=== PATIENT | male | born 1940 | race Caucasian/White ===

== ENCOUNTER 2018-09-03 10:19 | Inpatient (IN) | payer MEDICARE ==
[~2018-09-03] VITALS: Ht 182.9 cm; Wt 90.6 kg
[~2018-09-03 10:19] MED LIST: AMLO10 PO; ASCO500 PO; ASPI81CH PO; CENTRUM SILVER1 EAC1 PO; CHOL10002 PO; CIPR500 PO; Colace100 MG PO; DEXA4 IV; FERR325 PO; Garlic1000 MG PO; HYDACE10B PO; HYOS0.375T; LOSHYD100 PO; MAGIC MOUTHWASH PO; METR500 PO; MULTIVITAMIN PO; Metamucil Smooth1 EA PO; Norco 10-325 T1 EACH PO; OMEGA 3 1200MG PO; ONDA8 PO; OXYC5 PO; Omeprazole20 M1 PO; PANT40 PO; Promacta25 MG PO; TOCO400 PO; WARF4 PO; [UNRECOGNIZED DRUG - OTHER] PO
[2018-09-03 15:42] LABS: Hematocrit 24.9 % (37.0-53.0); Hemoglobin 7.6 g/dL (13.5-17.5)
[2018-09-03 23:53] LABS: BASOPHILS ABSOLUTE AUTO 0.03 K/mm3 (0.00-0.23); BASOPHILS PERCENT AUTO 1 % (0-2); EOSINOPHILS ABSOLUTE AUTO 0.13 K/mm3 (0.00-0.68); EOSINOPHILS PERCENT AUTO 3 % (0-6); Hematocrit 27.7 % (37.0-53.0); Hemoglobin 8.8 g/dL (13.5-17.5); IMMATURE GRAN ABSOLUTE AUTO 0.01 K/mm3 (0.00-0.10); IMMATURE GRAN PERCENT AUTO 0 % (0-1); LYMPHOCYTES ABSOLUTE AUTO 0.79 K/mm3 (0.84-5.20); LYMPHOCYTES PERCENT AUTO 18 % (21-46); MONOCYTES ABSOLUTE AUTO 0.32 K/mm3 (0.16-1.47); MONOCYTES PERCENT AUTO 7 % (4-13); Mean Corpuscular HGB 30.2 pg (26.0-34.0); Mean Corpuscular HGB Conc 31.8 g/dL (31.5-36.5); NEUTROPHILS ABSOLUTE AUTO 3.19 K/mm3 (1.96-9.15); NEUTROPHILS PERCENT AUTO 71 % (41-73); RDW Coefficient Variation 15.2 % (11.7-14.2); RDW Standard Deviation 52.4 fL (35.1-46.3); Red Blood Cell Count 2.91 M/mm3 (4.30-5.90); White Blood Cell Count 4.47 K/mm3 (4.00-11.30)
[2018-09-03 23:54] LABS: Mean Corpuscular Volume 95 fL (80-100)
[2018-09-03 23:55] LABS: Platelet Count 18 K/mm3 (150-400)
[2018-09-04 03:17] LABS: BASOPHILS ABSOLUTE AUTO 0.02 K/mm3 (0.00-0.23); BASOPHILS PERCENT AUTO 1 % (0-2); EOSINOPHILS ABSOLUTE AUTO 0.18 K/mm3 (0.00-0.68); EOSINOPHILS PERCENT AUTO 5 % (0-6); Hematocrit 28.4 % (37.0-53.0); Hemoglobin 8.8 g/dL (13.5-17.5); IMMATURE GRAN PERCENT AUTO 0 % (0-1); LYMPHOCYTES PERCENT AUTO 20 % (21-46); MONOCYTES ABSOLUTE AUTO 0.37 K/mm3 (0.16-1.47); MONOCYTES PERCENT AUTO 9 % (4-13); Mean Corpuscular HGB 29.6 pg (26.0-34.0); Mean Corpuscular Volume 96 fL (80-100); NEUTROPHILS ABSOLUTE AUTO 2.63 K/mm3 (1.96-9.15); NEUTROPHILS PERCENT AUTO 66 % (41-73); RDW Coefficient Variation 15.4 % (11.7-14.2); RDW Standard Deviation 53.9 fL (35.1-46.3); Red Blood Cell Count 2.97 M/mm3 (4.30-5.90)
[2018-09-04 03:19] LABS: Mean Platelet Volume 14.1 fL (9.1-12.4); Platelet Count 18 K/mm3 (150-400)
[2018-09-04 03:33] LABS: Alanine Aminotransfer (ALT/SGP 18 U/L (12-78); Albumin/Globulin Ratio 0.9 (0.8-1.8); Alk Phos 83 U/L (50-136); Anion Gap 6 mmol/L (6-16); Aspartate Aminotrans (AST/SGOT 17 U/L (12-37); Bilirubin, Total 0.8 mg/dL (0.1-1.0); Blood Urea Nitrogen 14 mg/dL (8-24); Bun/Creatinine Ratio 16.1 (12.0-20.0); CO2, Blood 25 mmol/L (21-32); Calcium, Blood 7.4 mg/dL (8.5-10.1); Chloride, Blood 114 mmol/L (98-108); Creatinine, Blood 0.87 mg/dL (0.60-1.20); Globulin, Blood 3.3 g/dL (2.2-4.0); Glomerular Filtration Rate >60 (60-); Glucose, Blood 103 mg/dL (70-99); Potassium, Blood 4.4 mmol/L (3.5-5.5); Sodium, Blood 145 mmol/L (136-145); Total Protein, Blood 6.3 g/dL (6.4-8.2)
[2018-09-04 08:05] LABS: Hematocrit 28.6 % (37.0-53.0); Hemoglobin 8.9 g/dL (13.5-17.5)
[2018-09-04 09:23] LABS: Hematocrit 29.1 % (37.0-53.0); Hemoglobin 9.1 g/dL (13.5-17.5)
[2018-09-04 17:49] LABS: Hematocrit 30.7 % (37.0-53.0); Hemoglobin 9.6 g/dL (13.5-17.5)
[2018-09-04 21:38] LABS: Hematocrit 28.7 % (37.0-53.0); Hemoglobin 9.2 g/dL (13.5-17.5)
[2018-09-05 01:13] LABS: BASOPHILS ABSOLUTE AUTO 0.02 K/mm3 (0.00-0.23); BASOPHILS PERCENT AUTO 1 % (0-2); EOSINOPHILS ABSOLUTE AUTO 0.17 K/mm3 (0.00-0.68); EOSINOPHILS PERCENT AUTO 5 % (0-6); IMMATURE GRAN ABSOLUTE AUTO 0.01 K/mm3 (0.00-0.10); IMMATURE GRAN PERCENT AUTO 0 % (0-1); LYMPHOCYTES ABSOLUTE AUTO 0.69 K/mm3 (0.84-5.20); LYMPHOCYTES PERCENT AUTO 21 % (21-46); MONOCYTES ABSOLUTE AUTO 0.39 K/mm3 (0.16-1.47); MONOCYTES PERCENT AUTO 12 % (4-13); Mean Corpuscular HGB 30.6 pg (26.0-34.0); Mean Corpuscular HGB Conc 32.1 g/dL (31.5-36.5); Mean Corpuscular Volume 95 fL (80-100); NEUTROPHILS ABSOLUTE AUTO 2.03 K/mm3 (1.96-9.15); NEUTROPHILS PERCENT AUTO 61 % (41-73); RDW Standard Deviation 52.1 fL (35.1-46.3); Red Blood Cell Count 2.94 M/mm3 (4.30-5.90); White Blood Cell Count 3.31 K/mm3 (4.00-11.30)
[2018-09-05 01:18] LABS: Platelet Count 18 K/mm3 (150-400)
[2018-09-05 01:31] LABS: Alanine Aminotransfer (ALT/SGP 20 U/L (12-78); Albumin, Blood 3.1 g/dL (3.4-5.0); Albumin/Globulin Ratio 0.9 (0.8-1.8); Alk Phos 82 U/L (50-136); Anion Gap 9 mmol/L (6-16); Aspartate Aminotrans (AST/SGOT 16 U/L (12-37); Bilirubin, Total 0.8 mg/dL (0.1-1.0); Blood Urea Nitrogen 9 mg/dL (8-24); Bun/Creatinine Ratio 11.6 (12.0-20.0); CO2, Blood 24 mmol/L (21-32); Calcium, Blood 7.6 mg/dL (8.5-10.1); Chloride, Blood 111 mmol/L (98-108); Creatinine, Blood 0.78 mg/dL (0.60-1.20); Globulin, Blood 3.3 g/dL (2.2-4.0); Glomerular Filtration Rate >60 (60-); Glucose, Blood 102 mg/dL (70-99); Potassium, Blood 4.1 mmol/L (3.5-5.5); Sodium, Blood 144 mmol/L (136-145); Total Protein, Blood 6.4 g/dL (6.4-8.2)
[2018-09-06 04:14] LABS: BASOPHILS ABSOLUTE AUTO 0.02 K/mm3 (0.00-0.23); BASOPHILS PERCENT AUTO 1 % (0-2); EOSINOPHILS ABSOLUTE AUTO 0.18 K/mm3 (0.00-0.68); EOSINOPHILS PERCENT AUTO 6 % (0-6); Hematocrit 26.8 % (37.0-53.0); Hemoglobin 8.3 g/dL (13.5-17.5); IMMATURE GRAN PERCENT AUTO 0 % (0-1); LYMPHOCYTES ABSOLUTE AUTO 0.61 K/mm3 (0.84-5.20); LYMPHOCYTES PERCENT AUTO 19 % (21-46); MONOCYTES ABSOLUTE AUTO 0.46 K/mm3 (0.16-1.47); MONOCYTES PERCENT AUTO 15 % (4-13); Mean Corpuscular HGB 29.7 pg (26.0-34.0); Mean Corpuscular Volume 96 fL (80-100); NEUTROPHILS ABSOLUTE AUTO 1.89 K/mm3 (1.96-9.15); NEUTROPHILS PERCENT AUTO 60 % (41-73); RDW Coefficient Variation 14.7 % (11.7-14.2); RDW Standard Deviation 52.2 fL (35.1-46.3); Red Blood Cell Count 2.79 M/mm3 (4.30-5.90); White Blood Cell Count 3.16 K/mm3 (4.00-11.30)
[2018-09-06 04:18] LABS: Mean Platelet Volume 14.2 fL (9.1-12.4)
[2018-09-06 04:21] LABS: Platelet Count 29 K/mm3 (150-400)
[2018-09-06 04:46] LABS: Anion Gap 6 mmol/L (6-16); Blood Urea Nitrogen 9 mg/dL (8-24); Bun/Creatinine Ratio 10.6 (12.0-20.0); CO2, Blood 24 mmol/L (21-32); Calcium, Blood 7.6 mg/dL (8.5-10.1); Chloride, Blood 111 mmol/L (98-108); Creatinine, Blood 0.85 mg/dL (0.60-1.20); Glomerular Filtration Rate >60 (60-); Glucose, Blood 98 mg/dL (70-99); Magnesium, Blood 2.2 mg/dL (1.6-2.4); Potassium, Blood 3.8 mmol/L (3.5-5.5); Sodium, Blood 141 mmol/L (136-145)
[2018-09-06 04:54] LABS: Phosphorus, Blood 3.2 mg/dL (2.5-4.9)
[2018-09-06 14:09] LABS: Hematocrit 27.6 % (37.0-53.0); Hemoglobin 8.6 g/dL (13.5-17.5)
[2018-09-06 18:11] LABS: BASOPHILS ABSOLUTE AUTO 0.03 K/mm3 (0.00-0.23); BASOPHILS PERCENT AUTO 1 % (0-2); EOSINOPHILS ABSOLUTE AUTO 0.18 K/mm3 (0.00-0.68); EOSINOPHILS PERCENT AUTO 6 % (0-6); Hemoglobin 9.3 g/dL (13.5-17.5); IMMATURE GRAN PERCENT AUTO 0 % (0-1); LYMPHOCYTES ABSOLUTE AUTO 0.71 K/mm3 (0.84-5.20); LYMPHOCYTES PERCENT AUTO 22 % (21-46); MONOCYTES ABSOLUTE AUTO 0.32 K/mm3 (0.16-1.47); MONOCYTES PERCENT AUTO 10 % (4-13); Mean Corpuscular HGB 29.8 pg (26.0-34.0); Mean Corpuscular Volume 96 fL (80-100); NEUTROPHILS PERCENT AUTO 62 % (41-73); RDW Coefficient Variation 14.8 % (11.7-14.2); RDW Standard Deviation 52.5 fL (35.1-46.3); Red Blood Cell Count 3.12 M/mm3 (4.30-5.90); White Blood Cell Count 3.24 K/mm3 (4.00-11.30)
[2018-09-06 18:17] LABS: Platelet Count 36 K/mm3 (150-400)
[2018-09-07 03:46] LABS: BASOPHILS ABSOLUTE AUTO 0.03 K/mm3 (0.00-0.23); BASOPHILS PERCENT AUTO 1 % (0-2); EOSINOPHILS ABSOLUTE AUTO 0.18 K/mm3 (0.00-0.68); EOSINOPHILS PERCENT AUTO 6 % (0-6); Hematocrit 27.1 % (37.0-53.0); Hemoglobin 8.4 g/dL (13.5-17.5); IMMATURE GRAN PERCENT AUTO 0 % (0-1); LYMPHOCYTES ABSOLUTE AUTO 0.74 K/mm3 (0.84-5.20); LYMPHOCYTES PERCENT AUTO 24 % (21-46); MONOCYTES PERCENT AUTO 13 % (4-13); Mean Corpuscular HGB 29.1 pg (26.0-34.0); Mean Corpuscular Volume 94 fL (80-100); NEUTROPHILS ABSOLUTE AUTO 1.72 K/mm3 (1.96-9.15); NEUTROPHILS PERCENT AUTO 56 % (41-73); RDW Coefficient Variation 14.8 % (11.7-14.2); RDW Standard Deviation 50.3 fL (35.1-46.3); Red Blood Cell Count 2.89 M/mm3 (4.30-5.90); White Blood Cell Count 3.07 K/mm3 (4.00-11.30)
[2018-09-07 04:10] LABS: Mean Platelet Volume 14.1 fL (9.1-12.4)
[2018-09-07 04:11] LABS: Platelet Count 41 K/mm3 (150-400)
[2018-09-07 04:24] LABS: Alanine Aminotransfer (ALT/SGP 16 U/L (12-78); Albumin/Globulin Ratio 0.7 (0.8-1.8); Alk Phos 78 U/L (50-136); Anion Gap 5 mmol/L (6-16); Aspartate Aminotrans (AST/SGOT 18 U/L (12-37); Bilirubin, Total 0.7 mg/dL (0.1-1.0); Blood Urea Nitrogen 11 mg/dL (8-24); CO2, Blood 25 mmol/L (21-32); Calcium, Blood 7.9 mg/dL (8.5-10.1); Chloride, Blood 111 mmol/L (98-108); Globulin, Blood 4.3 g/dL (2.2-4.0); Glomerular Filtration Rate >60 (60-); Glucose, Blood 80 mg/dL (70-99); Potassium, Blood 3.9 mmol/L (3.5-5.5); Sodium, Blood 141 mmol/L (136-145); Total Protein, Blood 7.3 g/dL (6.4-8.2)
[2018-09-07 12:30] LABS: Hematocrit 28.1 % (37.0-53.0); Hemoglobin 8.6 g/dL (13.5-17.5)
[2018-09-08 03:29] LABS: BASOPHILS ABSOLUTE AUTO 0.02 K/mm3 (0.00-0.23); BASOPHILS PERCENT AUTO 1 % (0-2); EOSINOPHILS ABSOLUTE AUTO 0.16 K/mm3 (0.00-0.68); EOSINOPHILS PERCENT AUTO 4 % (0-6); Hematocrit 26.6 % (37.0-53.0); Hemoglobin 8.4 g/dL (13.5-17.5); IMMATURE GRAN ABSOLUTE AUTO 0.01 K/mm3 (0.00-0.10); IMMATURE GRAN PERCENT AUTO 0 % (0-1); LYMPHOCYTES ABSOLUTE AUTO 0.75 K/mm3 (0.84-5.20); LYMPHOCYTES PERCENT AUTO 17 % (21-46); MONOCYTES ABSOLUTE AUTO 0.52 K/mm3 (0.16-1.47); MONOCYTES PERCENT AUTO 12 % (4-13); Mean Corpuscular HGB 29.9 pg (26.0-34.0); Mean Corpuscular HGB Conc 31.6 g/dL (31.5-36.5); Mean Corpuscular Volume 95 fL (80-100); NEUTROPHILS ABSOLUTE AUTO 2.85 K/mm3 (1.96-9.15); NEUTROPHILS PERCENT AUTO 66 % (41-73); RDW Coefficient Variation 14.6 % (11.7-14.2); RDW Standard Deviation 50.4 fL (35.1-46.3); Red Blood Cell Count 2.81 M/mm3 (4.30-5.90); White Blood Cell Count 4.31 K/mm3 (4.00-11.30)
[2018-09-08 03:34] LABS: Platelet Count 32 K/mm3 (150-400)
== END 2018-09-08 11:24 | disposition home or self-care (01) | DRG 375 ==
LOC: ER 10:19 → MEDS 13:54 → ICUE 13:54 → MEDS 14:50 → ICUE 20:04
PROVIDERS: Family Medicine; Internal Medicine; Internal Medicine Gastroenterology; Nurse Practitioner Acute Care; Student in an Organized Health Care Education/Training Program
PROC: 3E0G8GC Introduction of Other Therapeutic Substance into Upper GI, Via Natural or Artificial Opening Endoscopic (ICD-10-PCS; principal; 2018-09-03 18:00)
PROC: 0W3P8ZZ Control Bleeding in Gastrointestinal Tract, Via Natural or Artificial Opening Endoscopic (ICD-10-PCS; 2018-09-03 18:00)
PROC: 30233N1 Transfusion of Nonautologous Red Blood Cells into Peripheral Vein, Percutaneous Approach (ICD-10-PCS; 2018-09-04)
DX: C78.89 Secondary malignant neoplasm of other digestive organs (principal); K92.2 Gastrointestinal hemorrhage, unspecified; D69.6 Thrombocytopenia, unspecified; I10 Essential (primary) hypertension; Z87.891 Personal history of nicotine dependence; E78.5 Hyperlipidemia, unspecified; H90.5 Unspecified sensorineural hearing loss; D64.9 Anemia, unspecified; G47.00 Insomnia, unspecified
CPT/HCPCS: 36415; 36430; 80048; 80053; 83735; 84100; 85014; 85018; 85025; 86850; 86900; 86901; 86923; 87493; 96365; 96366; 99285-25; C9113; J1568; J7042; J7050; P9016; Q0163

== ENCOUNTER → 2019-07-14 | Outpatient (CLI) | payer MEDICARE ==
[~2019-07-14] MED LIST changes: +CEPH500 PO
[2019-07-14 12:10] LABS: BASOPHILS ABSOLUTE AUTO 0.03 K/mm3 (0.00-0.23); BASOPHILS PERCENT AUTO 1 % (0-2); EOSINOPHILS ABSOLUTE AUTO 0.14 K/mm3 (0.00-0.68); EOSINOPHILS PERCENT AUTO 4 % (0-6); Hematocrit 41.9 % (37.0-53.0); Hemoglobin 13.9 g/dL (13.5-17.5); IMMATURE GRAN ABSOLUTE AUTO 0.01 K/mm3 (0.00-0.10); IMMATURE GRAN PERCENT AUTO 0 % (0-1); LYMPHOCYTES ABSOLUTE AUTO 0.85 K/mm3 (0.84-5.20); LYMPHOCYTES PERCENT AUTO 21 % (21-46); MONOCYTES ABSOLUTE AUTO 0.46 K/mm3 (0.16-1.47); MONOCYTES PERCENT AUTO 11 % (4-13); Mean Corpuscular HGB Conc 33.2 g/dL (31.5-36.5); Mean Corpuscular Volume 97 fL (80-100); NEUTROPHILS ABSOLUTE AUTO 2.55 K/mm3 (1.96-9.15); NEUTROPHILS PERCENT AUTO 63 % (41-73); RDW Coefficient Variation 12.5 % (11.7-14.2); RDW Standard Deviation 44.6 fL (35.1-46.3); Red Blood Cell Count 4.34 M/mm3 (4.30-5.90); White Blood Cell Count 4.04 K/mm3 (4.00-11.30)
[2019-07-14 12:28] LABS: Alanine Aminotransfer (ALT/SGP 29 U/L (12-78); Albumin, Blood 4.1 g/dL (3.4-5.0); Albumin/Globulin Ratio 0.9 (0.8-1.8); Alk Phos 155 U/L (40-126); Anion Gap 9 mmol/L (6-16); Aspartate Aminotrans (AST/SGOT 26 U/L (12-37); Bilirubin, Total 0.5 mg/dL (0.1-1.0); Blood Urea Nitrogen 16 mg/dL (8-24); Bun/Creatinine Ratio 14.8 (12.0-20.0); CO2, Blood 28 mmol/L (21-32); Calcium, Blood 8.9 mg/dL (8.5-10.1); Chloride, Blood 104 mmol/L (98-108); Creatinine, Blood 1.08 mg/dL (0.60-1.20); Globulin, Blood 4.4 g/dL (2.2-4.0); Glomerular Filtration Rate >60 (60-); Glucose, Blood 89 mg/dL (70-99); Potassium, Blood 4.3 mmol/L (3.5-5.5); Sodium, Blood 141 mmol/L (136-145); Thyroid Stimulating Hormone 1.488 uIU/mL (0.360-4.800); Total Protein, Blood 8.5 g/dL (6.4-8.2)
[2019-07-14 13:06] LABS: Mean Platelet Volume 10.9 fL (9.1-12.4)
[2019-07-14 13:07] LABS: Platelet Count 40 K/mm3 (150-400)
== END | disposition home or self-care (01) ==
LOC: LAB SHORT 12:05 → LAB EV 12:05
PROVIDERS: Physician Assistant
DX: R53.83 Other fatigue (principal); E86.0 Dehydration
CPT/HCPCS: 80053; 84443; 85025

== ENCOUNTER 2019-07-18 11:54 | Emergency (ER) | payer MEDICARE ==
[~2019-07-18] VITALS: Ht 182.9 cm; Wt 104.3 kg
[~2019-07-18 11:54] MED LIST changes: -CEPH500 PO
[2019-07-18] MEDS ORDERED: CEPH500 PO (14:43)
== END 2019-07-18 15:32 | disposition home or self-care (01) ==
LOC: ER 11:54
DX: S61.011A Laceration without foreign body of right thumb without damage to nail, initial encounter (principal); I10 Essential (primary) hypertension; Z85.01 Personal history of malignant neoplasm of esophagus; Z87.891 Personal history of nicotine dependence; Z79.899 Other long term (current) drug therapy; W22.8XXA Striking against or struck by other objects, initial encounter; Y92.813 Airplane as the place of occurrence of the external cause
CPT/HCPCS: 90471; 90714; 99283-25; A9270-GY

== ENCOUNTER → 2019-09-10 | Outpatient (CLI) | payer MEDICARE ==
[~2019-09-10] MED LIST changes: +CEPH500 PO
== END | disposition home or self-care (01) ==
LOC: LAB SHORT 15:40 → LAB EV 15:40
DX: L03.012 Cellulitis of left finger (principal)
CPT/HCPCS: 87070; 87075; 87077; 87147; 87186; 87205

== ENCOUNTER 2019-09-24 09:00 | Inpatient (IN) | payer MEDICARE ==
[~2019-09-24] VITALS: Ht 182.9 cm; Wt 98.8 kg
[~2019-09-24 09:00] MED LIST changes: -CENTRUM SILVER1 EAC1 PO; +DEXA4 PO; +THERA1 EACH PO
[2019-09-24 09:20] LABS: Calcium, Ionized (POC) 1.03 mmol/L (1.10-1.46); Chloride (POC) 98 mmol/L (98-108); Glucose (ISTAT POC) 131 mg/dL (70-99); Hemoglobin (POC) 12.6 g/dL (13.5-17.5); Potassium (POC) 4.2 mmol/L (3.5-5.5); Sodium (POC) 135 mmol/L (135-148); Total CO2 (POC) 26 mmol/L (21-32)
[2019-09-24 09:24] LABS: BASOPHILS ABSOLUTE AUTO 0.01 K/mm3 (0.00-0.23); BASOPHILS PERCENT AUTO 0 % (0-2); EOSINOPHILS ABSOLUTE AUTO 0.01 K/mm3 (0.00-0.68); EOSINOPHILS PERCENT AUTO 0 % (0-6); Hematocrit 36.2 % (37.0-53.0); Hemoglobin 11.8 g/dL (13.5-17.5); IMMATURE GRAN ABSOLUTE AUTO 0.09 K/mm3 (0.00-0.10); IMMATURE GRAN PERCENT AUTO 2 % (0-1); LYMPHOCYTES ABSOLUTE AUTO 0.93 K/mm3 (0.84-5.20); LYMPHOCYTES PERCENT AUTO 16 % (21-46); MONOCYTES ABSOLUTE AUTO 0.15 K/mm3 (0.16-1.47); MONOCYTES PERCENT AUTO 3 % (4-13); Mean Corpuscular HGB 32.2 pg (26.0-34.0); Mean Corpuscular HGB Conc 32.6 g/dL (31.5-36.5); Mean Corpuscular Volume 99 fL (80-100); Mean Platelet Volume 11.5 fL (9.1-12.4); NEUTROPHILS ABSOLUTE AUTO 4.52 K/mm3 (1.96-9.15); NEUTROPHILS PERCENT AUTO 79 % (41-73); NRBC ABSOLUTE 0.24 K/mm3 (0.00-0.02); NRBC Auto 4.2 /100 WBC (0.0-0.2); Platelet Count 80 K/mm3 (150-400); RDW Coefficient Variation 14.8 % (11.7-14.2); Red Blood Cell Count 3.67 M/mm3 (4.30-5.90); White Blood Cell Count 5.71 K/mm3 (4.00-11.30)
[2019-09-24 09:44] LABS: PCO2 Venous 39.2 mmHg (38-42); PO2 Venous 85.8 mmHg (38-42); pH Blood Venous 7.46 (7.34-7.37)
[2019-09-24 09:45] LABS: Alanine Aminotransfer (ALT/SGP 32 U/L (12-78); Albumin, Blood 2.3 g/dL (3.4-5.0); Albumin/Globulin Ratio 0.5 (0.8-1.8); Alk Phos 96 U/L (50-136); Anion Gap 8 mmol/L (6-16); Aspartate Aminotrans (AST/SGOT 31 U/L (12-37); Bilirubin, Total 1.1 mg/dL (0.1-1.0); Blood Urea Nitrogen 20 mg/dL (8-24); Bun/Creatinine Ratio 18.3 (12.0-20.0); CO2, Blood 28 mmol/L (21-32); Calcium, Blood 8.3 mg/dL (8.5-10.1); Chloride, Blood 101 mmol/L (98-108); Creatinine, Blood 1.09 mg/dL (0.60-1.20); Globulin, Blood 4.3 g/dL (2.2-4.0); Glomerular Filtration Rate >60 (60-); Glucose, Blood 125 mg/dL (70-99); Potassium, Blood 4.2 mmol/L (3.5-5.5); Sodium, Blood 137 mmol/L (136-145); Total Protein, Blood 6.6 g/dL (6.4-8.2); Troponin I 0.019 ng/mL (0.000-0.040)
[2019-09-24 09:45] LABS: Base Excess Venous 4.3 mmol/L
[2019-09-24 11:44] LABS: Source, Urine Clean Catch
--- NOTE | 2019-09-24 11:52 | NUR ---
ED Palliative Care Consult. Spoke with Dr Catherine and discussed case. Pt may benefit from conversation regarding POLST and Code Status. Pt is A&O and denies pain at this time. Pt reports moderate dyspnea and is currently on 10 L O2 via oxymizer. Pt does not use oxygen at home. Pt reports breathing treatment is helping with dyspnea. Pt reports mild but manageable nausea. Pt's Darlin is present during visit. Therapeutic discussion occured regarding goals of care. Pt lives at home with his . Children live in [place]. Pt and report adequate support with friends if need. Pt reports current quality of life is good and is independent of his ADLs. Engaged in discussion regarding POLST and Code Status. Pt reports having a completed POLST at home and wishes to be a Full Code. Educated on life sustaining measures including risk factors. Pt and V/U. Pt reports full treatment. Listened as Pt reports optimism regarding his cancer. Pt and report no concerns at this time. Palliative Care will remain available.
[2019-09-24 12:08] LABS: Bilirubin, Urine Neg (Neg); Blood, Urine 3+ (Neg); Glucose Qualitative, Urine Neg (Neg); Ketones, Urine Neg (Neg); Leukocyte Esterase, Urine 1+ (Neg); Nitrite, Urine Neg (Neg); Protein, Urine 3+ (Neg); Specific Gravity, Urine 1.015 (1.003-1.022); Urobilinogen, Urine 1+ (Normal)
[2019-09-24] MEDS ORDERED: GABA300 PO (12:15)
[2019-09-24] MEDS ORDERED: [UNRECOGNIZED DRUG - REMARK] (12:15)
[2019-09-24] MEDS ORDERED: ALFUZOSIN HCL10 MG PO (12:17)
[2019-09-24] MEDS ORDERED: CYANOCOBAL1000 MCG/1 SC (12:18)
[2019-09-24] MEDS ORDERED: FERSU300 PO (12:18)
[2019-09-24] MEDS ORDERED: Anti-Diarrheal2 MG PO (12:19)
[2019-09-24] MEDS ORDERED: Robaxin-750750 MG PO (12:20)
[2019-09-24] MEDS ORDERED: OXYB5 PO (12:20)
[2019-09-24] MEDS ORDERED: TRAM50 PO (12:21)
[2019-09-24 12:22] LABS: Appearance, Urine Clear (Clear); Color, Urine Yellow (P-Yellow)
[2019-09-24] MEDS ORDERED: ALPR.5 PO (12:24)
[2019-09-24 12:25] LABS: Bacteria Few /hpf; Red Blood Cells, Urine Not Seen /hpf (0-2); Squamous Epithelial Cells Few /hpf (Few); White Blood Cells, Urine 0-2 /hpf (0-5)
--- NOTE | 2019-09-24 12:35 | NUR ---
PT ARRIVAL. PT ARRIVED TO UNIT VIA [facility] PT LEFT AT 10L OXYMIZER AND HAD TO BE TURNED UP TO 15L ON THE WAY. PT'S VS STABLE AT THIS TIME. PT'S O2 SATS DROP TO THE 80'S VERY QUICKLY WITH ANY TYPE OF MOVMENT AND BECOMES DYSPNIC. RT AND PROVIDER NOTIFIED OF INCREAED O2 NEED. PT IS A&Ox4 BUT IS FORGETFUL AT TIMES UNABLE TO STATE THE MONTH. PT'S AT THE BEDSIDE. PT CONT USING URINAL IN THE BED. URINE DARK YELLOW/NAIF. WILL CONTINUE TO MONITOR.
--- NOTE | 2019-09-24 20:00 | NUR ---
Assumed care Assumed care of pt at appros 1914 from IMELDA Pool. Upon arrival, pt sitting in bed, leaning to left, denying pain or discomfort. Pt breathing mildly labored on Airvo at 50% with o2 between 88-92%. Pt repositioned and with slight movement, saturations drop to 80%. Pt with increased tachypnea with movement and increased work of breathing. Pt states "I feel terrible". VSS overall. Alert and oriented. Pt voiding into urinal by leaning to left in bed. Pt without enough energy to sit on edge of bed. Pt deasaturates to 75% while voiding. RT called and notifed of events. Crackles heard in bilat bases upon assessment. Rt to bring in CPAP/BIPAP as pt tolerates. Pt with complaints on nausea at this time so BIPAP not placed on pt until nausea subsides. Provider called and made aware of event. Provider orders BNP to monitor fluid balance. Awaiting results and once recieved will notify provider of BNP. See shift assessment for detailed systems assessment.
[2019-09-25 03:39] LABS: BASOPHILS ABSOLUTE AUTO 0.01 K/mm3 (0.00-0.23); BASOPHILS PERCENT AUTO 0 % (0-2); EOSINOPHILS PERCENT AUTO 0 % (0-6); Hematocrit 32.5 % (37.0-53.0); Hemoglobin 10.4 g/dL (13.5-17.5); IMMATURE GRAN ABSOLUTE AUTO 0.06 K/mm3 (0.00-0.10); IMMATURE GRAN PERCENT AUTO 1 % (0-1); LYMPHOCYTES ABSOLUTE AUTO 0.38 K/mm3 (0.84-5.20); LYMPHOCYTES PERCENT AUTO 8 % (21-46); MONOCYTES ABSOLUTE AUTO 0.05 K/mm3 (0.16-1.47); MONOCYTES PERCENT AUTO 1 % (4-13); Mean Corpuscular HGB 32.3 pg (26.0-34.0); Mean Corpuscular Volume 101 fL (80-100); Mean Platelet Volume 12.4 fL (9.1-12.4); NEUTROPHILS ABSOLUTE AUTO 4.42 K/mm3 (1.96-9.15); NEUTROPHILS PERCENT AUTO 90 % (41-73); NRBC ABSOLUTE 0.09 K/mm3 (0.00-0.02); NRBC Auto 1.8 /100 WBC (0.0-0.2); Platelet Count 71 K/mm3 (150-400); RDW Standard Deviation 55.1 fL (35.1-46.3); Red Blood Cell Count 3.22 M/mm3 (4.30-5.90); White Blood Cell Count 4.92 K/mm3 (4.00-11.30)
[2019-09-25 03:56] LABS: Anion Gap 7 mmol/L (6-16); Blood Urea Nitrogen 16 mg/dL (8-24); Bun/Creatinine Ratio 17.7 (12.0-20.0); CO2, Blood 28 mmol/L (21-32); Calcium, Blood 7.9 mg/dL (8.5-10.1); Chloride, Blood 106 mmol/L (98-108); Glomerular Filtration Rate >60 (60-); Glucose, Blood 140 mg/dL (70-99); Potassium, Blood 3.9 mmol/L (3.5-5.5); Sodium, Blood 141 mmol/L (136-145)
--- NOTE | 2019-09-25 06:26 | NUR ---
Shift Summary VSS this shift, pt remains on Airvo at 50 LPM with o2 89-92% at rest. This pt desaturates significantly with slight movement (turning from side to side, with effort needed to void in urinal). with these movement, pt is desaturating down to 75%. BIPAP attempted by RT but pt complaints of Nausea contraindicates continued use. BIPAP not replaced d/t nausea. Pt with no changes to mentation throughout night, remains alert and oriented, calls appropriately. Pt is cooperative with care. Overall, pt with moderate respiratory distress which has been unchanged overnight. BNP obtained overnight and WNL. Pt able to communicate needs and able to speak in short sentances before becoming dyspneic. Will continue to monitor and report off to day RN.
--- NOTE | 2019-09-25 08:01 | NUR ---
AM NOTE. ASSUMED CARE OF PT APROX 0700. PT IS A&Ox4. PT WAS ADMITTED FOR RESP FAILURE. PT'S VS STABLE AT THIS TIME. PT IS ON AIRVO AT 50% WITH SATS AT 88-90%. PT DESATS VERY QUICKLY TO THE 70'S-LOW 80'S WITH ANY TYPE OF MOVEMENT. PT IS GRUNTING AND HAS LABORED BREATHINGS, THIS IS A CHANGE FROM YESTERDAY. PT IS C/O OF "MY RIGHT LUNG HURTS EVERY TIME I BREATH IN." COARSE CRACKELS ARE HEARD T/O ALL LOBES. PROVIDER CALLED AND ORDERS OBTAINED FOR BIPAP, RT CALLED BIPAP BROUGHT BACK INTO THE ROOM. PT WAS GIVEN XANAX PER HIS REQUEST AND BIPAP WAS PLACED. PT'S WORK OF BREATHING IS LESS LABORED, O2 SATS ARE 96% ON THE BIPAP AT 10/5 AND 60% FIO2. WILL CONTINUE TO MONITOR.
--- NOTE | 2019-09-25 11:23 | NUR ---
PT UPDATE... SETTINGS ON THE BIPAP HAD TO BE INCREASED TO 16/6 AND 80% FIO2, PT HAD MOVED IN THE BED TO USE THE URINAL AND O2 SATS DROPPED TO THE LOW 80'S AND PT WAS UNABLE TO RECOVER WITH OUT THE INCREASE IN FIO2.
[2019-09-25 12:07] LABS: Base Excess Venous 0 mmol/L; Bicarbonate Venous 25.7 mmol/L (24.0-30.0); PCO2 Venous 22.6 mmHg (38-42); PO2 Venous 198 mmHg (38-42)
[2019-09-25 12:08] LABS: pH Blood Venous 7.59 (7.34-7.37)
--- NOTE | 2019-09-25 18:44 | NUR ---
SHIFT SUMMARY. PT HAS BEEN STABLE ON THE BIPAP AT 12/10 AND FIO2 OF 70%. PT'S VS STABLE. PT STILL HAS MOMENTS OF CONFUSION. PT EASILY DESATS TO THE LOW 80'S WITH MINIMAL MOVEMENTS. PT'S HAS BEEN AT THE BEDSIDE MOST OF THE DAY. CALL LIGHT IN REACH, BED IS LOCKED AND LOW WILL CONTINUE TO MONITOR UNTIL REPORT IS GIVEN TO ONCOMING RN.
--- NOTE | 2019-09-25 21:53 | NUR ---
ASSUMED CARE OF PATIENT AT APPROXIMATELY 1910 FROM NEGRA Cash RN. PATIENT ALERT AND ORIENTED TO LOCATION, SELF AND FOLLOWING DIRECTIONS. PATIENT REPORTS HE THINKS DR. MARAVILLA WILL BE AROUND SOON; PATIENT SHOCKED TO HEAR IT WAS 2030 AT NIGHT NOT IN THE MORNING; "WAIT, I'M CONFUSED". PATIENT DENIES PAIN, NUMBNESS, TINGLING, DIZZINESS AND NAUSEA. PATIENT DID NOT EAT ANY OF HIS DINNER. NSR ON TELE; OXYGEN SATURATION ABOVE 90% ON BIPAP 70% FIO2; PATIENT REPORTS HE WANTS TO STAY ON BIPAP ALL NIGHT; DESATS WITH MINIMAL MOVEMENT OR ACTIVITY; RECOVERS WITHIN MINUTES. VOIDS INTO URINAL; LEAKS OCCASIONALLY. TURNED OFTEN; BEDREST. IV FLUIDS INFUSING PER ORDER. PATIENT CURRENTLY RESTING IN BED; CALL LIGHT IN REACH; BED IN LOWEST POSISTION; BED ALARM ON; WILL CONTINUE TO MONITOR AND ASSESS UNTIL END OF SHIFT.
[2019-09-25 22:27] LABS: Adenovirus Not Detected (NOT DETECT); Bordetella pertussis Not Detected (NOT DETECT); Chlamydophila pneumoniae Not Detected (NOT DETECT); Coronavirus 229E Not Detected (NOT DETECT); Coronavirus HKU1 Not Detected (NOT DETECT); Coronavirus NL63 Not Detected (NOT DETECT); Coronavirus OC43 Not Detected (NOT DETECT); Human Metapneumovirus Not Detected (NOT DETECT); Human Rhinovirus/Enterovirus Not Detected (NOT DETECT); Influenza A Not Detected (NOT DETECT); Influenza A/2009-H1 Not Detected (NOT DETECT); Influenza A/H1 Not Detected (NOT DETECT); Influenza A/H3 Not Detected (NOT DETECT); Influenza B Not Detected (NOT DETECT); Mycoplasma pneumoniae Not Detected (NOT DETECT); Parainfluenza Virus 1 Not Detected (NOT DETECT); Parainfluenza Virus 2 Not Detected (NOT DETECT); Parainfluenza Virus 3 Not Detected (NOT DETECT); Parainfluenza Virus 4 Not Detected (NOT DETECT); Respiratory Syncytial Virus Not Detected (NOT DETECT)
[2019-09-26 03:58] LABS: BASOPHILS ABSOLUTE AUTO 0.01 K/mm3 (0.00-0.23); BASOPHILS PERCENT AUTO 0 % (0-2); EOSINOPHILS PERCENT AUTO 0 % (0-6); Hematocrit 29.2 % (37.0-53.0); Hemoglobin 9.3 g/dL (13.5-17.5); IMMATURE GRAN ABSOLUTE AUTO 0.05 K/mm3 (0.00-0.10); IMMATURE GRAN PERCENT AUTO 1 % (0-1); LYMPHOCYTES ABSOLUTE AUTO 0.23 K/mm3 (0.84-5.20); LYMPHOCYTES PERCENT AUTO 5 % (21-46); MONOCYTES ABSOLUTE AUTO 0.06 K/mm3 (0.16-1.47); MONOCYTES PERCENT AUTO 1 % (4-13); Mean Corpuscular HGB Conc 31.8 g/dL (31.5-36.5); Mean Corpuscular Volume 100 fL (80-100); Mean Platelet Volume 12.5 fL (9.1-12.4); NEUTROPHILS ABSOLUTE AUTO 4.73 K/mm3 (1.96-9.15); NEUTROPHILS PERCENT AUTO 93 % (41-73); NRBC ABSOLUTE 0.09 K/mm3 (0.00-0.02); NRBC Auto 1.8 /100 WBC (0.0-0.2); Platelet Count 55 K/mm3 (150-400); RDW Coefficient Variation 15.5 % (11.7-14.2); Red Blood Cell Count 2.91 M/mm3 (4.30-5.90); White Blood Cell Count 5.08 K/mm3 (4.00-11.30)
[2019-09-26 04:13] LABS: Alanine Aminotransfer (ALT/SGP 26 U/L (12-78); Albumin, Blood 1.8 g/dL (3.4-5.0); Albumin/Globulin Ratio 0.5 (0.8-1.8); Alk Phos 91 U/L (50-136); Anion Gap 5 mmol/L (6-16); Aspartate Aminotrans (AST/SGOT 37 U/L (12-37); Blood Urea Nitrogen 18 mg/dL (8-24); Bun/Creatinine Ratio 21.8 (12.0-20.0); CO2, Blood 27 mmol/L (21-32); Calcium, Blood 8.1 mg/dL (8.5-10.1); Chloride, Blood 113 mmol/L (98-108); Creatinine, Blood 0.82 mg/dL (0.60-1.20); Globulin, Blood 3.9 g/dL (2.2-4.0); Glomerular Filtration Rate >60 (60-); Glucose, Blood 130 mg/dL (70-99); Magnesium, Blood 2.2 mg/dL (1.6-2.4); Potassium, Blood 3.7 mmol/L (3.5-5.5); Sodium, Blood 145 mmol/L (136-145); Total Protein, Blood 5.7 g/dL (6.4-8.2)
--- NOTE | 2019-09-26 06:15 | NUR ---
NO ACUTE CHANGES TO REPORT. PATIENT SLEPT ABOUT EIGHT HOURS. VSS. WILL CONTINUE TO MONITOR AND ASSESS UNTIL END OF SHIFT.
--- NOTE | 2019-09-26 10:00 | NUR ---
AM ASSESSMENT SUMMARY PT RESTING IN BED, A&OX3, GLASSES ON, HI FLOW NC IN PLACE, SAT 95%. PT DENIES PAIN AT THIS TIME. HEART RATE REGULAR AT 86. LUNGS CLEAR IN UPPER LOBES, DIMINISHED LOWER LOBES. BS HYPOACTIVE. SCAB TO BOTTOM OF RT FOOT. SL TO LT AC AND RT AC. SPLINT TO LT AC TO STABILIZE ARM AND REMIND PT NOT TO BEND ARM WHILE IVFs INFUSING. PT STATES WILL BE HERE LATER THIS AM. PT DOES APPEAR SOB WITH ACTIVITY, TALKING. TACHYPNIC. SKIN DRY, 1+ EDEMA BLL.
--- NOTE | 2019-09-26 16:20 | NUR ---
1600 ASSESSMENT PT CONTINUES TO REST IN BED, TILTED FROM SIDE TO SIDE FOR COMFORT. PT TOLERATED HIGHVO UNTIL 1620 THEN WAS SWITCHED BACK TO BIPAP AT12/10 AND FiO2 OF 60% AND A SAT OF 89%. PT STATES IS VERY "SLEEPY" AND IS IRRITABLE AT THIS TIME. GOING HOME FOR THE NIGHT.
--- NOTE | 2019-09-26 18:27 | NUR ---
SHIFT SUMMARY PT CONTINUES TO REST IN BED, IRRITABLE THIS AFTERNOON R/T "SLEEPY". PT ENCOURAGED TO TURN SIDE TO SIDE BUT REFUSES AT TIMES. HR REMAINS STABLE, LUNGS DIMINISHED IN BASES, CRACKLES TO RUL. PT TOLERATED HIGHVO UNTIL MID-AFTERNOON THEN WAS PLACED ON BIPAP R/T SAT <90%. WILL CONTINUE TO MONITOR PT. BED REMAINS LOW, CALL LIGHT IN REACH, IVFs AND ABX INFUSING.
--- NOTE | 2019-09-26 18:38 | NUR ---
DR. SARMIENTO CALLED AND INFORMED THAT URINE CAME BACK POSITIVE FOR PSUEDOMONAS AND STAPH AUREUS. INFORMED THAT PATIENT IS CURRENTLY ON ZOSYN AND LEVAQUIN. STATED THIS WAS ADEQUATE COVERAGE. NO ORDERS OBTAINED.
--- NOTE | 2019-09-27 00:36 | NUR ---
PATIENT IS ALERT TO SELF, CONFUSED AT TIMES. TACHYPNEIC WITH AWAKE. ON BIPAP AND TOLERATING WELL. SETTINGS: 10/13, 60% FIO2. PT BECOMES ANXIOUS FROM TIEM TO TIME. MOANS ON TURNS. WITHDRAWN. UPPER LOBES COARSE, DIMINISHED LOWER LOBES. NO BM SINCE 09/20. [address]: R WRIST AND R AC. PT SLEEPING COMFORTABLY NOW. WILL CONTINUE TO MONITOR UNTIL END OF SHIFT.
[2019-09-27 03:31] LABS: Hematocrit 27.8 % (37.0-53.0); Hemoglobin 8.7 g/dL (13.5-17.5); Mean Corpuscular HGB 31.6 pg (26.0-34.0); Mean Corpuscular HGB Conc 31.3 g/dL (31.5-36.5); Mean Corpuscular Volume 101 fL (80-100); NRBC ABSOLUTE 0.49 K/mm3 (0.00-0.02); NRBC Auto 6.6 /100 WBC (0.0-0.2); RDW Coefficient Variation 16.7 % (11.7-14.2); RDW Standard Deviation 60.4 fL (35.1-46.3); Red Blood Cell Count 2.75 M/mm3 (4.30-5.90); White Blood Cell Count 7.48 K/mm3 (4.00-11.30)
[2019-09-27 03:43] LABS: Platelet Count 25 K/mm3 (150-400)
[2019-09-27 03:47] LABS: Anion Gap 6 mmol/L (6-16); Blood Urea Nitrogen 40 mg/dL (8-24); Bun/Creatinine Ratio 35.4 (12.0-20.0); CO2, Blood 28 mmol/L (21-32); Calcium, Blood 8.5 mg/dL (8.5-10.1); Chloride, Blood 114 mmol/L (98-108); Creatinine, Blood 1.13 mg/dL (0.60-1.20); Glomerular Filtration Rate >60 (60-); Glucose, Blood 150 mg/dL (70-99); Potassium, Blood 3.9 mmol/L (3.5-5.5); Sodium, Blood 148 mmol/L (136-145)
[2019-09-27 04:24] LABS: BAND PERCENT MAN 14 % (0-8); BASOPHILS PERCENT MAN 0 % (0-2); EOSINOPHILS PERCENT MAN 0 % (0-6); LYMPHOCYTES ABSOLUTE MAN 0.14 K/mm3 (0.84-5.20); LYMPHOCYTES PERCENT MAN 2 % (21-46); MONOCYTES ABSOLUTE MAN 0.07 K/mm3 (0.16-1.47); MONOCYTES PERCENT MAN 1 % (4-13); NEUTROPHILS ABSOLUTE MAN 7.25 K/mm3 (1.96-9.15); SEG NEUTROPHILS PERCENT MAN 83 % (41-73); TOTAL CELLS COUNTED 100
--- NOTE | 2019-09-27 16:22 | NUR ---
SHIFT SUMMARY PATIENT RESTING IN BED THIS SHIFT. PATIETN MEDICATED X 2 FOR NAUSEA AFTER REPOSITIONING DURING SHIFT. PATIENT DENIES PAIN BUT REPORTS STIFF BACK. PATIENT ON AIRVO DURING FIRST HALF OF DAY. PATIENT SWITCHED TO BIPAP IN AFTERNOON SO PATIENT COULD MAINTAIN 02 SATURATION ABOVE 90% WHILE NAPPING. PATIENT REPORTS BETTER APPETITE TODAY THAN YESTERDAY, ALTHOUGH PO INTAKE IS STILL POOR. PATIENT UNABLE TO TOLERATE ACTIVITY AT THIS TIME. PT CONSULT PLACED. AT BEDSIDE, JENN LIGHT IN REACH.
--- NOTE | 2019-09-27 19:46 | NUR ---
CARE ASSUMPTION PT A&O X4. VSS. SPO2 > 92% ON BIPAP 12/10, FIO2 60%. MONITOR SHOW SR, HR 70's. WILL CONTINUE TO MONITOR AND PROVIDE CARE.
--- NOTE | 2019-09-27 20:37 | NUR ---
SPO2 DESAT PT SWITCHED TO AIRVO @ 60L, 54% FOR ORAL MED INTAKE. PT QUICKLY DESAT TO 80's UPON SIPS OF WATER AND SWALLOWING OF 2 MEDICATION TABS. PT THEN COUGHING W/ DESAT TO 70's. PT THEN REPORTING HAVING SWALLOWED MEDS SUCCESSFULLY, AIRWAY CLEAR, PT PLACED BACK ON BIPAP 10/13, FIO2 60% W/ SPO2 RETURN TO 90%. PT BREATHING NOW EVEN AND UNLABORED. WILL CONTINUE TO MONITOR AND PROVIDE CARE.
[2019-09-28 03:43] LABS: BASOPHILS ABSOLUTE AUTO 0.01 K/mm3 (0.00-0.23); BASOPHILS PERCENT AUTO 0 % (0-2); Hematocrit 25.1 % (37.0-53.0); Hemoglobin 7.8 g/dL (13.5-17.5); Mean Corpuscular HGB Conc 31.1 g/dL (31.5-36.5); Mean Corpuscular Volume 100 fL (80-100); NRBC ABSOLUTE 0.28 K/mm3 (0.00-0.02); NRBC Auto 3.9 /100 WBC (0.0-0.2); RDW Coefficient Variation 18.8 % (11.7-14.2); RDW Standard Deviation 64.8 fL (35.1-46.3); Red Blood Cell Count 2.52 M/mm3 (4.30-5.90); White Blood Cell Count 7.11 K/mm3 (4.00-11.30)
[2019-09-28 03:47] LABS: EOSINOPHILS PERCENT AUTO 0 % (0-6); IMMATURE GRAN ABSOLUTE AUTO 0.31 K/mm3 (0.00-0.10); IMMATURE GRAN PERCENT AUTO 4 % (0-1); LYMPHOCYTES ABSOLUTE AUTO 0.36 K/mm3 (0.84-5.20); LYMPHOCYTES PERCENT AUTO 5 % (21-46); MONOCYTES ABSOLUTE AUTO 0.09 K/mm3 (0.16-1.47); MONOCYTES PERCENT AUTO 1 % (4-13); NEUTROPHILS ABSOLUTE AUTO 6.34 K/mm3 (1.96-9.15); NEUTROPHILS PERCENT AUTO 89 % (41-73)
[2019-09-28 03:48] LABS: Platelet Count 26 K/mm3 (150-400)
[2019-09-28 04:00] LABS: Anion Gap 6 mmol/L (6-16); Blood Urea Nitrogen 82 mg/dL (8-24); Bun/Creatinine Ratio 38.3 (12.0-20.0); CO2, Blood 25 mmol/L (21-32); Calcium, Blood 8.4 mg/dL (8.5-10.1); Chloride, Blood 118 mmol/L (98-108); Creatinine, Blood 2.14 mg/dL (0.60-1.20); Glomerular Filtration Rate 32 (60-); Glucose, Blood 184 mg/dL (70-99); Potassium, Blood 4.2 mmol/L (3.5-5.5); Sodium, Blood 149 mmol/L (136-145)
--- NOTE | 2019-09-28 05:52 | NUR ---
SHIFT SUMMARY PT A&O TO SELF AND SURROUNDINGS, FOLLOWING INSTRUCTIONS. SPO2 > 90% ON BIPAP 12/10, FIO2 60% OR AIRVO @ 60L, 70-92%. MONITOR SHOWS SR W/ BBB & PAC's, HR 60's-80's. PT W/ EPISODES OF CONTINENCE & INCONTINENCE, WEARING ATTENDS OR USING URINAL IN BED. PT REQUIRING 2 PERSON ASSIST FOR REPOSITIONING. WILL CONTINUE TO MONITOR AND PROVIDE CARE UNTIL REPORT OFF TO DAY SHIFT RN.
--- NOTE | 2019-09-28 10:45 | NUR ---
COMPRESSION STOCKINGS PATIENT REPORTED HAVING WORN HIS COMPRESSION STOCKINGS FOR THREE DAYS STRAIGHT. PATIENT IS IN RECLINER WITH LEGS RAISED TO LEVEL OF HEART, STOCKINGS WERE REMOVED AND SKIN ASSESSED. SKIN IS INTACT, BUT DRY AND FLAKY. LOTION APPLIED, LIGHT MASSAGE TO FEET AND CALVES GIVEN, AND EDUCATION ON MUSCLE ACTIVITY TO PROMOTE LYMPH AND VENOUS RETURN. ALSO EDUCATION TO WHEN TO WEAR STOCKINGS FOR BEST RESULT, AND RATIONALE FOR REMOVING THEM FOR THERAPEUTIC INTERVALS. PATIENT VERBALIZED UNDERSTANDING AND APPRECIATION.
--- NOTE | 2019-09-28 11:37 | NUR ---
Spiritual care visit conducted. Patient is sitting on a chair and resting his eyes. Patient's , Darlin is present. Darlin does most of the talking because patient is so tired that he only responds in short sentences and defers most answers over to Darlin. Darlin gives a brief life review and an extensive report on patient coronado with cancer. She tells me about patient's deep drive and determination to to stay in the fight. We talk about how powerful that inner strength is. I listen empathically, reinforce helpful attitudes and practices, and provide a calming presence. I will continue to remain available to patient and family.
--- NOTE | 2019-09-28 19:18 | NUR ---
SHIFT SUMMARY ASSUMED CARE OF PATIENT AT 0700 HOURS, PT AWAKE LYING IN BED W BIPAP AT 60%, 10/13. BREATH SOUNDS COARSE WITH GOOD AIR MOVEMENT, ALL VITAL SIGNS W/IN NORMAL LIMITS. MEDICATED AND TREATED PATIENT PER MD ORDER AND UNIT PROTOCOL, PATIENT DENIED PAIN. PT WAS ABLE TO TRANSFER TO COMMODE FOR A LARGE BM, AND THEN TO HIS RECLINER, NEEDING TWO PERSON FULL ASSIST, BUT MAINTAINING GOOD O2 SATS ALL THE WHILE. PATIENT WAS RECEPTIVE TO INTERVENTION AND EDUCATION, PLEASANT AND COOPERATIVE AT EVERY TURN. AT SHIFT CHANGE PATIENT WAS RECEIVING TRANSFUSION OF ONE UNIT OF PRBC'S, DENIES PAIN, NO NEEDS. CARE AND REPORT GIVEN TO ONCOMING SHIFT AT 1900, BED LOCKED AND LOW, CALL LIGHT W/IN REACH.
[2019-09-28 21:47] LABS: Hematocrit 27.9 % (37.0-53.0)
[2019-09-29 04:00] LABS: BASOPHILS ABSOLUTE AUTO 0.02 K/mm3 (0.00-0.23); BASOPHILS PERCENT AUTO 0 % (0-2); EOSINOPHILS PERCENT AUTO 0 % (0-6); Hematocrit 26.3 % (37.0-53.0); Hemoglobin 8.8 g/dL (13.5-17.5); IMMATURE GRAN ABSOLUTE AUTO 0.25 K/mm3 (0.00-0.10); IMMATURE GRAN PERCENT AUTO 4 % (0-1); LYMPHOCYTES ABSOLUTE AUTO 0.35 K/mm3 (0.84-5.20); LYMPHOCYTES PERCENT AUTO 6 % (21-46); MONOCYTES ABSOLUTE AUTO 0.09 K/mm3 (0.16-1.47); MONOCYTES PERCENT AUTO 2 % (4-13); Mean Corpuscular HGB 32.6 pg (26.0-34.0); Mean Corpuscular HGB Conc 33.5 g/dL (31.5-36.5); NEUTROPHILS PERCENT AUTO 88 % (41-73); NRBC ABSOLUTE 0.24 K/mm3 (0.00-0.02); RDW Coefficient Variation 17.9 % (11.7-14.2); RDW Standard Deviation 62.4 fL (35.1-46.3); White Blood Cell Count 6.01 K/mm3 (4.00-11.30)
[2019-09-29 04:01] LABS: Mean Corpuscular Volume 97 fL (80-100)
[2019-09-29 04:02] LABS: Platelet Count 26 K/mm3 (150-400)
[2019-09-29 04:19] LABS: Albumin/Globulin Ratio 0.6 (0.8-1.8); Bilirubin, Total 1.2 mg/dL (0.1-1.0); Bun/Creatinine Ratio 42.5 (12.0-20.0); Calcium, Blood 8.3 mg/dL (8.5-10.1); Globulin, Blood 3.2 g/dL (2.2-4.0); Potassium, Blood 4.4 mmol/L (3.5-5.5); Total Protein, Blood 5.2 g/dL (6.4-8.2)
--- NOTE | 2019-09-29 05:25 | NUR ---
SHIFT SUMMARY NO ACUTE EVENTS OVERNIGHT. PATIENT ON BIPAP 55%FiO2 THROUGHOUT ENTIRE RETAIL CUSTOMER SERVICE REPRESENTATIVE SPO2 88-92%. PATIENT O2 <88% WHEN REPOSITIONING. DYSPNEA ON ANY EXERTION. CONTINENT ALL NIGHT CALLING FOR THE URINAL APPROPRIATELY. AAOX4. VSS. 1 UNIT PRBC GIVEN AND H&H CHECKED PER PHYSICIAN ORDER. WILL CONTINUE TO MONITOR AND REPORT TO ON COMING SHIFT
--- NOTE | 2019-09-29 07:42 | NUR ---
AM NOTE... ASSUMED CARE OF PT APROX 0700. PT IS A&Ox4 BUT CAN BE FORGETFUL AT TIMES. PT WAS ADMITTED FOR RESP FAILURE. PT IS ON BIPAP AT 12/10 AND 55%FIO2, RR 20. PT'S VS STABLE. PT STATES HE IS "FEELING A LITTLE BETTER TODAY." PT HAS FLUIDS RUNNING AT 125MLS/HR, IT IS NOTED THAT PT HAS CRACKLES IN THE LOWER LOBES, CLEAR IN THE UPPER LOBES. INCREASED EDEMA IS NOTED TO THE PT'S BLE R>L. CALL LIGHT IN REACH, BED IS LOCKED AND LOW WILL CONTINUE TO MONITOR.
--- NOTE | 2019-09-29 18:49 | NUR ---
SHIFT SUMMARY. NO ACUTE NEGATIVE CHANGES NOTED THIS SHIFT. PT'S VS HAVE BEEN STABLE. PT C/O OF HEADACHE ONCE AND WAS MEDICATED PER EMAR. PT GOT UP TO THE BSC W/2 P MOD ASSIST BUT A HENRI/SIT TO STAND LIFT WAS NEEDED TO GET THE PT BACK TO BED. PT HAS BEEN ON THE AIRVO MOST OF THE DAY AND USED THE BIPAP DURING SLEEP. PT DOES NOT DESAT QUICKLY HE DID THE DAYBEFORE. CALL LIGHT IN REACH, BED IS LOCKED AND LOW WILL CONTINUE TO MONITOR.
--- NOTE | 2019-09-29 22:17 | NUR ---
ASSUMED CARE OF PATIENT AT APPROXIMATELY 1905 FROM NEGRA Cash RN. PATIENT ALERT AND ORIENTED X3; CONFUSED AT TIMES; PATIENT MORE ALERT COMPARED TO THE WEEKEND. PATIENT REPORTS HEADACHE AT START OF SHIFT; MEDICATED PER EMAR AND GIVEN COOL WASHCLOTH; REPORTS GOOD RESULTS. PATIENT DENIES NUMBNESS, TINGLING, DIZZINESS AND NAUSEA. NSR ON TELE; OXYGEN SATURATION ABOVE 90% ON BIPAP 50% FIO2 OR ON AIRVO; PATIENT DROPS TO LOW 80'S WHEN ROTATING BETWEEN BIPAP AND AIRVO. VOIDS INTO URINAL; LEAKS OCCASIONALLY; ATTENDS IN PLACE. PATIENT REPPORTS DIARRHEA TODAY. BEDREST. IV FLUIDS INFUSING PER ORDER. DR. MULLIGAN BEDSIDE AT SHIFTCHANGE; CXR IN AM. PATIENT CURRENTLY RESTING IN BED; CALL LIGHT IN REACH; BED IN LOWEST POSISTION; BED ALARM ON; WILL CONTINUE TO MONITOR AND ASSESS UNTIL END OF SHIFT.
[2019-09-30 04:04] LABS: BASOPHILS ABSOLUTE AUTO 0.01 K/mm3 (0.00-0.23); BASOPHILS PERCENT AUTO 0 % (0-2); EOSINOPHILS PERCENT AUTO 0 % (0-6); Hematocrit 24.5 % (37.0-53.0); Hemoglobin 7.7 g/dL (13.5-17.5); Mean Corpuscular HGB 31.4 pg (26.0-34.0); Mean Corpuscular HGB Conc 31.4 g/dL (31.5-36.5); NRBC ABSOLUTE 0.13 K/mm3 (0.00-0.02); NRBC Auto 2.5 /100 WBC (0.0-0.2); RDW Coefficient Variation 17.2 % (11.7-14.2); RDW Standard Deviation 60.9 fL (35.1-46.3); Red Blood Cell Count 2.45 M/mm3 (4.30-5.90); White Blood Cell Count 5.18 K/mm3 (4.00-11.30)
[2019-09-30 04:17] LABS: Anion Gap 7 mmol/L (6-16); Blood Urea Nitrogen 79 mg/dL (8-24); Bun/Creatinine Ratio 44.1 (12.0-20.0); CO2, Blood 25 mmol/L (21-32); Calcium, Blood 7.8 mg/dL (8.5-10.1); Chloride, Blood 113 mmol/L (98-108); Creatinine, Blood 1.79 mg/dL (0.60-1.20); Glomerular Filtration Rate 39 (60-); Glucose, Blood 172 mg/dL (70-99); Magnesium, Blood 2.4 mg/dL (1.6-2.4); Phosphorus, Blood 3.7 mg/dL (2.5-4.9); Potassium, Blood 4.5 mmol/L (3.5-5.5); Sodium, Blood 145 mmol/L (136-145)
[2019-09-30 04:20] LABS: IMMATURE GRAN ABSOLUTE AUTO 0.28 K/mm3 (0.00-0.10); IMMATURE GRAN PERCENT AUTO 5 % (0-1); LYMPHOCYTES ABSOLUTE AUTO 0.24 K/mm3 (0.84-5.20); LYMPHOCYTES PERCENT AUTO 5 % (21-46); MONOCYTES ABSOLUTE AUTO 0.07 K/mm3 (0.16-1.47); MONOCYTES PERCENT AUTO 1 % (4-13); Mean Corpuscular Volume 100 fL (80-100); NEUTROPHILS ABSOLUTE AUTO 4.58 K/mm3 (1.96-9.15); NEUTROPHILS PERCENT AUTO 88 % (41-73)
[2019-09-30 04:21] LABS: Platelet Count 31 K/mm3 (150-400)
--- NOTE | 2019-09-30 05:02 | NUR ---
HEMOGLOBIN OF 7.7; CALLED DR. MAYEN TO REPORT DROP IN HEMOGLOBIN FROM 8.8 TO 7.7; CONTINUE TO MONITOR AND ASSESS; NO NEW ORDERS
[2019-09-30 05:48] LABS: BAND PERCENT MAN 2 % (0-8); BASOPHILS PERCENT MAN 0 % (0-2); EOSINOPHILS PERCENT MAN 0 % (0-6); LYMPHOCYTES PERCENT MAN 2 % (21-46); METAMYELOCYTE ABSOLUTE MAN 0.05 K/mm3 (0.00-0.00); METAMYELOCYTE PERCENT MAN 1 % (0-0); MONOCYTES PERCENT MAN 0 % (4-13); NEUTROPHILS ABSOLUTE MAN 5.02 K/mm3 (1.96-9.15); SEG NEUTROPHILS PERCENT MAN 95 % (41-73); TOTAL CELLS COUNTED 100
--- NOTE | 2019-09-30 06:37 | NUR ---
NO ACUTE CHANGES TO REPORT. PATIENT SLEPT ABOUT EIGHT HOURS LAST NIGHT. VSS. WILL CONTINUE TO MONITOR AND ASSESS UNTIL END OF SHIFT.
--- NOTE | 2019-09-30 16:15 | NUR ---
Pt visit this afternoon. Pt resting in bed upon arrival and receiving a breathing treatment. Pt's Darlin at bedside. Janelle is short spoken and appears tense. After Pt's breathing treatment has finished discussed pain, SOB, anxiety, and nausea. Pt denies pain and nausea. Pt appears mildly dyspneic and reports breathing treatment helped. Pt also reports anxiety due to new information being given regarding his health. Attempted for Pt to elaborate and express concerns but Pt remains withdrawn. Gale also remains withdrawn. Edere reports Pt usually has a nap in the afternoon but has not done so today. Asked Pt if he needs anything with Pt denying any needs at this time. Palliative Care will remain available.
--- NOTE | 2019-09-30 16:26 | NUR ---
Late entry from previous visit. Reviewed chart and Dr Garcia's note from today. Pt's visit today was strictly therapeutic.
--- NOTE | 2019-09-30 17:54 | NUR ---
SHIFT NOTE PT HAS BEEN DECREASED ON AIRVO OXYGEN TO 50% TODAY HAS BEEN ABLE TO MAINTAIN SATS AT OR ABOVE 91%. PT HAS NOT ATE A GREAT DEAL OF ANY OF HIS FOOD TRAYS TODAY, PT WAS STARTED ON TPN TODAY HE HAS NOT BEEN TAKING IN GREAT AMOUNTS OF FOOD. SECOND IV IS STARTED PT HAD A UNIT OF PRBC TODAY. PT DID HAVE A BRIEF NOSE BLEED THIS AM THAT WAS EASILY RESOLVED, DR GREGG WAS UPDATED, SMALL AMOUNT OF BACITRACIN APPLIED TO LT NARE THAT WAS BLEEDING BLEEDING APPEARS TO BE FROM DRIED NARES
--- NOTE | 2019-09-30 22:36 | NUR ---
RAC IV LEAKING FROM PREVIOUS NEEDLE INSERTION TO AREA. IV PATENT AND INFUSING WELL
[2019-10-01 05:05] LABS: Bun/Creatinine Ratio 51.9 (12.0-20.0); Calcium, Blood 7.8 mg/dL (8.5-10.1); Creatinine, Blood 1.54 mg/dL (0.60-1.20); Magnesium, Blood 2.4 mg/dL (1.6-2.4); Potassium, Blood 4.7 mmol/L (3.5-5.5)
[2019-10-01 05:52] LABS: Hematocrit 23.8 % (37.0-53.0); Hemoglobin 7.9 g/dL (13.5-17.5)
--- NOTE | 2019-10-01 06:25 | NUR ---
ASSUMED CARE OF PATIENT AT APPROXIMATELY 0055 FROM ESTHER Herrera RN. AGREE WITH HER ASSESSMENT; NO ACUTE CHANGES TO REPORT. STOOL SAMPLE SENT THIS AM. PATIENT INCONTINENT OF STOOL X2 AND URINE AT TIMES. NSR ON TELE; OXYGEN SATURATION ABOVE 90% ON BIPAP 10/13 55%; DENIES PAIN, NUMBNESS, TINGLING, DIZZINESS OR NAUSEA. DEXTROSE AND CLINIMIX INFUSING PER ORDER. CALLED DR. MAYEN TO REPORT NO H/H/ ORDERED POST RBC INFUSION 09/30; ORDERS RECIEVED. PATIENT CURRENTLY RESTING IN BED; CALL LIGHT IN REACH; BED IN LOWEST POSISTION; WILL CONTINUE TO MONITOR AND ASSESS UNTIL END OF SHIFT.
[2019-10-01 08:23] LABS: Bilirubin, Urine Neg (Neg); Blood, Urine 3+ (Neg); Glucose Qualitative, Urine Neg (Neg); Ketones, Urine Neg (Neg); Leukocyte Esterase, Urine Neg (Neg); Nitrite, Urine Neg (Neg); Protein, Urine 2+ (Neg); Specific Gravity, Urine 1.015 (1.003-1.022); Urobilinogen, Urine NORM (Normal)
[2019-10-01 08:25] LABS: Appearance, Urine Clear (Clear); Color, Urine Yellow (P-Yellow)
[2019-10-01 08:28] LABS: White Blood Cells, Urine Not Seen /hpf (0-5)
[2019-10-01 08:29] LABS: Bacteria Not Seen /hpf; Red Blood Cells, Urine 0-2 /hpf (0-2); Squamous Epithelial Cells Not Seen /hpf (Few)
[2019-10-01 08:51] LABS: Stool Occult Bld Immuno 1 Positive (NEGATIVE)
--- NOTE | 2019-10-01 12:04 | NUR ---
PER DR GREGG PT MAY TAKE ORAL PILLS PO WITH PUDDING
[2019-10-01 14:27] LABS: Hematocrit 22.5 % (37.0-53.0); Hemoglobin 7.6 g/dL (13.5-17.5); Mean Corpuscular HGB 32.3 pg (26.0-34.0); Mean Corpuscular HGB Conc 33.8 g/dL (31.5-36.5); Mean Corpuscular Volume 96 fL (80-100); NRBC ABSOLUTE 0.18 K/mm3 (0.00-0.02); NRBC Auto 2.6 /100 WBC (0.0-0.2); RDW Coefficient Variation 17.2 % (11.7-14.2); RDW Standard Deviation 58.4 fL (35.1-46.3); Red Blood Cell Count 2.35 M/mm3 (4.30-5.90)
[2019-10-01 14:34] LABS: Platelet Count 44 K/mm3 (150-400)
[2019-10-01 14:53] LABS: BAND PERCENT MAN 7 % (0-8); BASOPHILS PERCENT MAN 0 % (0-2); EOSINOPHILS ABSOLUTE MAN 0.07 K/mm3 (0.00-0.68); EOSINOPHILS PERCENT MAN 1 % (0-6); LYMPHOCYTES ABSOLUTE MAN 0.35 K/mm3 (0.84-5.20); LYMPHOCYTES PERCENT MAN 5 % (21-46); MONOCYTES PERCENT MAN 0 % (4-13); NEUTROPHILS ABSOLUTE MAN 6.58 K/mm3 (1.96-9.15); SEG NEUTROPHILS PERCENT MAN 87 % (41-73); TOTAL CELLS COUNTED 100
[2019-10-01 17:18] LABS: IMMATURE RETIC FRACTION 34.9 % (2.3-16.0); RETIC HGB EQUIVALENT 34.3 pg (28.20-36.60); RETICULOCYTE ABSOLUTE 0.1173 M/mm3 (0.0200-0.1100); RETICULOCYTE COUNT PERCENT 4.93 % (0.50-2.50)
--- NOTE | 2019-10-01 17:22 | NUR ---
DR NOLASCO CALLED FOR UPDATE THAT US HAS CONFIRMED US TO RT LEG, NO NEW ORDERS AT THIS TIME, DR NOLASCO WILL CALL BACK WITH ORDERS AFTER REVIEWING CHART
--- NOTE | 2019-10-01 17:35 | NUR ---
SHIFT NOTE PT HAS BEEN TITRATED DOWN TO 58% O2 VIA AIRVO WHICH PT IS TOLERATING WELL WITH SPO2 OF 89%, DR NOLASCO HAD REQUESTED TO KEEP SPO2 AT 88%. PT WITH RT LEG EDEMA, DENIES PAIN TO RT LEG, NO REDNESS NOTED BUT SKIN IS TAUGHT. DR NOLASCO MADE AWARE, ORDER WAS PLACED FOR DOPPLER US OF RT LEG. DOPPLER REVEALED POSITIVE FOR DVT, DR NOLASCO IS MADE AWARE, NO NEW ORDERS PROVIDED AT THIS TIME, DR NOLASCO IS CONSULTING WITH DR RANGEL, RADIOLOGIST AND DR HERRERA. DR CHANEY AND DR GREGG HAVE ALSO BEEN IN TO SEE PT TODAY. PT WITH 3 VERY LOSE STOOLS THAT ARE VERY DARK BROWN IN NATURE, WHICH DR CHANEY IS AWARE OF AND PERSONALLY ASSESSED. PT WAS MADE NPO TODAY BY SPEECH THERAPY BUT IS OK'D BY DR GREGG TO TAKE PILLS IN PUDDING.
--- NOTE | 2019-10-01 19:13 | NUR ---
MD DAILEY TO ROOM DISCUSSED PATIENTS BLOOD CLOT IN HIS RIGHT FEMORAL SONNY. DISCUSSED OPTIONS. IVC FILTERS VS INABILITY TO GIVE BLOOD THINNERS DUE TO PATIENTS COMORBIDITIES. DISCUSSED POSSIBILITY OF PATIENT HAVING PULMONARY EMBOLIS DUE TO FEMORAL SONNY BLOOD CLOT AND COMPROMISING PATIENTS RESPIRTORY STATUS. STRESSED PATIENTS RISK OF HAVING A PULMONARY EMBOLIS - AND REPORTED TO PATIENT THAT THE CURRENT INTERVENTIONALIST TO PLACE IVC FILTER IS NOT AVAILABLE HERE AT [facility] UNTIL SATURDAY. MD DAILEY DISCUSSED TRANSFERING PATIENT TO [facility] TO HAVE BLOOD CLOT REMOVED SOONER THAN SATURDAY DUE TO RISK. PROVIDER TO CALL [facility] TO FIND OUT IF ROOM AND ACCEPTING DR AVAILABLE SOONER AT [facility] THAN SATURDAY - MD DAILEY HOPING TO GET FEMORAL CLOT REMOVED EARLIER TOMORROW (Saturday10/02/19). PATIENT WOULD LIKE TO GO TO [facility] AND HAVE CLOT REMOVED SOON POSSIBLE EVEN IF TRANSFERED TO [facility].
--- NOTE | 2019-10-01 21:06 | NUR ---
REPORT CALLED TO [facility], REPORT GIVEN TO IMELDA QUINONES. PT TO GO TO ROOM 4121. IMELDA QUINONES WITH NO FURTHER QUESTIONS AT THIS TIME. THIS RN GAVE IMELDA QUINONES PCU NUMBER IF SHE HAS ANY FURTHER QUESTIONS THIS NIGHT. REPORT GIVEN TO [facility] WHO TAKE PT TO [facility]. KIM RT TO ACCOMPANY PT ON TRANSFER. NO FURTHER QUESTIONS FROM MED[facility] AT THIS TIME. PT WITH VSS, ALERT AND ORIENTED, DENIES INCREASED CHEST PAIN OR INCREASED SOB AT THIS TIME. PT BREATHING EVEN AND UNLABORED ON AIRVO WITH SAME SETTINGS INITIAL ASSESSMENT. ATTENDS CLEAN AND DRY AT THIS TIME. PT WITH NO FURTHER QUESTIONS AT THIS TIME.
--- NOTE | 2019-10-01 21:12 | NUR ---
PT TRANSFERRED VIA [facility] AT 2111 WITH RT ACCOMPANYING PT. THIS RN VERIFIED, AGAIN, WITH MEDICS IF ANY FURTHER QUESTIONS; NO FURTHER QUESTIONS FROM MEDIC OR PT AT TIME OF TRANSFER. ECHO, VENOUS DUPLEX, AND CT REPORT FAXXED TO [facility].
== END 2019-10-01 21:12 | disposition short-term general hospital (02) | DRG 871 ==
LOC: ER 09:00 → PCU 10:59
PROVIDERS: Family Medicine; Internal Medicine; Internal Medicine Critical Care Medicine; Internal Medicine Hematology & Oncology; Physician Assistant; Student in an Organized Health Care Education/Training Program; ADMIT Internal Medicine Endocrinology, Diabetes & Metabolism
PROC: 5A09457 Assistance with Respiratory Ventilation, 24-96 Consecutive Hours, Continuous Positive Airway Pressure (ICD-10-PCS; principal; 2019-09-24)
PROC: 3E02340 Introduction of Influenza Vaccine into Muscle, Percutaneous Approach (ICD-10-PCS; 2019-09-24)
PROC: 30233N1 Transfusion of Nonautologous Red Blood Cells into Peripheral Vein, Percutaneous Approach (ICD-10-PCS; 2019-09-28)
DX: A41.9 Sepsis, unspecified organism (principal); J18.9 Pneumonia, unspecified organism; J96.01 Acute respiratory failure with hypoxia; E27.3 Drug-induced adrenocortical insufficiency; D69.3 Immune thrombocytopenic purpura; C79.31 Secondary malignant neoplasm of brain; N17.9 Acute kidney failure, unspecified; E87.0 Hyperosmolality and hypernatremia; E46 Unspecified protein-calorie malnutrition; R65.20 Severe sepsis without septic shock; D63.0 Anemia in neoplastic disease; F41.9 Anxiety disorder, unspecified; R53.81 Other malaise; Z85.01 Personal history of malignant neoplasm of esophagus; Z23 Encounter for immunization
CPT/HCPCS: 0099U; 36415; 36430; 71045; 71260; 76770; 80047; 80048; 80053; 80069; 81001; 82248; 82274; 82803; 82947; 83605; 83615; 83735; 83880; 84100; 84484; 85014; 85018; 85025; 85027; 85045; 86850; 86900; 86901; 86923; 87040; 87077; 87086; 87102; 87147; 87186; 88108; 88312; 90686; 92610; 93005; 93010; 93306; 93971; 94640; 94660; 94762; 96365-59; 97110; 97163; 97530; 99285-25; C9113; G0008; J0456; J1720; J1956; J2060; J2405; J2543; J2765; J2920; J2930; J3370; J3480; J7030; J7050; J7070; P9016; Q9967